=== PATIENT | female | born 1935 | race Caucasian/White ===

== ENCOUNTER 2018-11-11 20:33 | Observation (INO) ==
[2018-11-12] MEDS ORDERED: Naloxone 0.4 MG/ML INJ IVP PRN (03:10)
--- NOTE | 2018-11-12 03:37 | Internal Med History&Physical ---
<Petrona Vivas - Last Filed: 11/12/18 05:28> Date of Encounter: 11/12/18 Time of Encounter: 02:11 Internal Medicine - H&P: HPI Chief complaint: fluid overload, shortness of breath Admitted From: Hospital to Hospital Transfer History of present illness: Ms. Restrepo is a 83 year old female presenting from [facility] with complaint of fluid overload and shortness of breath. Patient has a past medical history of heart failure with preserved ejection fraction, atrial fibrillation on metoprolol and warfarin, chronic kidney disease stage III, hypertension, gout, GERD, anxiety, dementia with agitation. Patient lived at home and then 23 days ago the patient was at [facility] for 12 day admission for bronchitis and pneumonia, she was treated with prednisone and unknown antibiotic regimen. After those 12 days the patient went to [facility] where she continued ertapenem and Zosyn for her pneumonia as well as a prednisone taper. Patient's daughter states that either at [facility] or at the [facility] her Lasix were discontinued. Per the daughter who is at bedside, patient gained 40 pounds since her admission to [facility]. Patient presented today to [place] emergency department with complaint of fluid overload and shortness of breath. Patient had a chest x-ray that showed left lower lobe pneumonia versus CHF exacerbation and given a dose of Levaquin and Lasix 40 mg. A Rowe catheter was placed and patient had a large amount of urine output. Labs from [place] are significant for white blood cell count at 12.4, hemoglobin at 10.9, creatinine at 1.43 and BUN at 40. A sputum culture was obtained, strep pneumonia urine antigen was negative and a UA was done which showed trace urine protein was negative for leukocyte esterase, nitrates, WBC, RBC. Patient is alert and oriented 1 and not a good historian, the daughter at bedside states that the patient had acute urinary retention last night, has increased agitation which she believes to be secondary to the prednisone taper. Daughter states that the patient was able to complete her physical therapy yesterday and was able to walk and sit up in a chair. The patient was able to admit to shortness of breath, productive cough, pleuritic pain, abdominal pain, dysuria and weight gain. She denies any headache, lightheadedness, fever, chills, chest pain, palpitations, diarrhea, constipation, skin lesions or rashes. Patient follows with Dr. Baez for neurology and Dr. Zheng for cardiology. Past Med Surg Social Fam HX - Past Medical History Medical history: atrial fibrillation, GERD, hypertension, other Additional medical history: kidney disease, brain aneurysm Psychiatric history: anxiety, depression - Past Surgical History Surgical History: other (brain aneurysm repair 1991. TKR 2011, cataract) Additional surgical history: Brain aneurysm with clips. Hernia surgery - Social History Smoking Status: Never smoker Smokeless Tobacco Status: No Alcohol use: none Drug use: none - Family History Father Hx Family Cardiac Disorders: Yes Brother Living Status: Age at : 72 Cause of : DC Hx Family Cardiac Disorders: Yes (DC) Internal Medicine - H&P: Meds Calcitriol [Rocaltrol] 0.25 mcg PO DAILY 05/28/16 [History] Omeprazole 40 mg PO DAILY 06/12/16 [History] Furosemide [Lasix] 40 mg PO DAILY 04/24/17 [History] Allopurinol [Zyloprim 100 MG] 100 mg PO DAILY 11/12/18 [History] Cholecalciferol (Vitamin D3) [Vitamin D] 50,000 unit PO WE 11/12/18 [History] Ertapenem Sodium [Invanz] 1 gm IJ DAILY 11/12/18 [History] Ipratropium/Albuterol Sulfate [Iprat-Albut 0.5-3(2.5) mg/3 ml] 3 ml IH Q6H PRN 11/12/18 [History] LORazepam [Ativan] 0.5 mg PO HS PRN 11/12/18 [History] Metoprolol Tartrate [Lopressor] 50 mg PO BID 11/12/18 [History] Nystatin POWDER [Nystop] 1 appl TP AD 11/12/18 [History] PARoxetine HCl [Paroxetine HCl] 30 mg PO DAILY 11/12/18 [History] Qxciplxylvnt-Dwgy-Dpqrhavq,Iso [Zosyn 2.25 gm/50 ml Galaxy Bag] 2.25 gm IV QID 11/12/18 [History] Quetiapine Fumarate [SEROquel] 25 mg PO DAILY 11/12/18 [History] Warfarin Sodium 3 mg PO DAILY 11/12/18 [History] predniSONE [PredniSONE] 10 mg PO BID 11/12/18 [History] Allergy/AdvReac Type Severity Reaction Status Date / Time digoxin AdvReac Nausea Verified 11/12/18 02:06 doxycycline AdvReac Confusion Verified 06/12/16 21:33 ROS unobtainable: other (Patient able to answer some questions, daughter at bedside assisted with review of systems) All Systems PM: A 10-system review of systems was performed and is negative for pertinent findings except as documented above in the HPI. - Constitutional Constitutional: no chills, no fatigue, no fever(s), no falls - EENT Eyes: no change in vision Ears: decreased hearing Nose, mouth and throat: no dysphagia, no nasal congestion, no odynophagia - Cardiovascular Cardiovascular ROS IM: dyspnea, dyspnea on exertion, edema, no chest pain, no diaphoresis, no lightheadedness, no palpitations, no syncope - Respiratory Respiratory: cough, dyspnea on exertion, pain on inspiration, chest congestion, pain with cough, no hemoptysis - Gastrointestinal Gastrointestinal: abdominal pain, no change in bowel habits, no constipation, no diarrhea, no dysphagia, no loose stools, no melena, no nausea, no vomiting - Genitourinary Genitourinary: difficulty urinating, urinary incontinence, no dysuria, no hematuria - Musculoskeletal Musculoskeletal ROS IM: no arthralgias, no myalgias - Integumentary Integumentary IM: no erythema, no new lesions, no non-healing lesions, no rash, no sores - Neurological Neurological ROS: confusion, memory loss, no focal weakness, no frequent falls, no paresthesias, no weakness - Psychiatric Psychiatric: abnormal sleep pattern, anxiety, confusion, irritability - Endocrine Endocrine IM: no cold intolerance, no heat intolerance - Hematologic/Lymphatic Hematologic/Lymphatic: easy bleeding, easy bruising - Constitutional Vitals: Temp Pulse Resp BP Pulse Ox 98.3 F 67 16 146/83 95 11/12/18 01:46 11/12/18 01:46 11/12/18 01:46 11/12/18 01:46 11/12/18 01:46 Exam: Gen.: Vitals noted. No acute distress. AAOx1, per daughter this is baseline, resting comfortably in bed. HEENT: PERRL/EOMI, oropharynx clear, Normocephalic, atraumatic, MMM Neck: Supple. No adenopathy. Trachea midline. No cervical midline tenderness. Cardiac: RRR, no murmur, +S1/S2, 1+ pitting edema, abdominal edema, radial pulses 3+ and symmetrical, dorsal pedis pulses and posterior tibial pulses not palpated however are located with Doppler ultrasound. Capillary refill less than 3 seconds. Pulmonary: Coarse Rales bilaterally, worse on the left, equal chest expansion, unlabored breathing Abdomen: soft, mildly distended, nontender, BS noted, no guarding, no palpable HSM Back: Nontender throughout. No sacral ulcers present. Skin: Bilateral lower extremities cool to touch, small healing lesion on left great toe. Bruising noted to bilateral upper extremities. MSK: ROM intact, no joint swelling noted, gait no assessed while in bed. B ilateral lower extremity and pedal diffuse tenderness to palpation. Neuro: A&Ox1, moves all extremities, no focal deficits, sensation intact, CN2-12 intact Psych: Calm, attempting to bite and chew on blanket as well as call light, attempting to grasp things out of the air: Per daughter this is baseline behavior, AOx1 Internal Med - H&P Results - Labs CBC & Chem 7: 11/12/18 03:49 11/12/18 03:49 - Assessment and Plan (1) Heart failure with preserved ejection fraction Current Visit: Yes Status: Acute Assessment and plan: Patient has a history of preserved ejection fraction and heart failure Presented to [place] emergency department with complaint of increasing shortness of breath and weight gain of 40 pounds within the past month Recently admitted to [facility] as well as stay at retirement facility, at some point during this admission and retirement facility stay her Lasix was discontinued Last echo on record 04/24/17-LVEF 60%, indeterminate LV diastolic function, right ventricle moderately dilated, mild aortic and tricuspid regurgitation and mild pulmonary hypertension. Chest x-ray at [place] -possible left lower lobe pneumonia versus fluid overload EKG shows heart rate of 82, normal axis in atrial fibrillation, no ST segment elevation or depression, no ischemic changes present. Compared to previous EKG done 06/09, this study is degraded somewhat by artifact, appears to show sinus arrhythmia. Repeat CBC, CMP, phosphorus and BNP pending Echo pending Strict I and O Continue Rowe catheter, history of urinary incontinence and for measurement of urine output Qualifiers: Heart failure chronicity: acute on chronic Qualified Code(s): I50.33 - Acute on chronic diastolic (congestive) heart failure (2) Left lower lobe pneumonia Current Visit: Yes Status: Acute Assessment and plan: Hospital-acquired pneumonia Patient diagnosed with pneumonia 23 days ago and was treated at [facility] with admission for 12 days, and continued treatment with Zosyn and ertapenem at [facility] Suspect that there are culture results from [facility], will need to call in the morning for culture results which most likely guided therapy with ertapenem Chest x-ray from [place] emergency department show left lower lobe pneumonia versus CHF exacerbation and fluid overload Leukocytosis at 12.4 present, patient also complains of shortness of breath and productive cough Scheduled DuoNeb and albuterol when necessary Ertapenem and Zosyn for antibiotic therapy Continue respiratory support as needed. Qualifiers: Pneumonia type: due to unspecified organism Qualified Code(s): J18.1 - Lobar pneumonia, unspecified organism (3) Afib Current Visit: Yes Status: Chronic Assessment and plan: Patient has a history of atrial fibrillation Home medications metoprolol and warfarin to be continued EKG shows heart rate of 82, normal axis, atrial fibrillation, no ST segment elevation or depression, no ischemic changes present. Continue cardiac monitoring Pharmacy to dose warfarin Qualifiers: Atrial fibrillation type: chronic Qualified Code(s): I48.2 - Chronic atrial fibrillation (4) CKD (chronic kidney disease) stage 3, GFR 30-59 ml/min Current Visit: Yes Status: Chronic Assessment and plan: History of chronic kidney disease stage III Creatinine 1.43, BUN [address] Sasha GEE with phosphorus pending Continue to avoid nephrotoxic medications-no NSAIDs just Tylenol for pain if nee ded Renally dose medications and antibiotics Continue to monitor (5) Hypertension Current Visit: Yes Status: Chronic Assessment and plan: History of hypertension Patient currently only on metoprolol for rate control and hypertension Continue metoprolol Qualifiers: Hypertension type: essential hypertension Qualified Code(s): I10 - Essential (primary) hypertension (6) GERD (gastroesophageal reflux disease) Current Visit: Yes Status: Chronic Assessment and plan: History of GERD Continue home medication omeprazole Qualifiers: Esophagitis presence: esophagitis presence not specified Qualified Code(s): K21.9 - Gastro-esophageal reflux disease without esophagitis (7) Gout Current Visit: Yes Status: Acute Assessment and plan: History of gout Continue home medication allopurinol Qualifiers: Gout site: unspecified site Gout etiology: unspecified cause Chronicity: chronic Presence of tophus: without tophus Qualified Code(s): M1A.9XX0 - Chronic gout, unspecified, without tophus (tophi) (8) Dementia Current Visit: Yes Status: Chronic Assessment and plan: Patient has a history of dementia Per the patient's daughter, patient seems more agitated than normal, also states that patient was not able to tolerate benzodiazepines for agitation Continue home medications Seroquel for agitation Qualifiers: Dementia type: Alzheimer's disease Alzheimer's disease onset: unspecified onset Dementia behavioral disturbance: without behavioral disturbance Qualified Code(s): G30.9 - Alzheimer's disease, unspecified; F02.80 - Dementia in other diseases classified elsewhere without behavioral disturbance (9) Anxiety Current Visit: Yes Status: Acute Assessment and plan: Patient has a history of anxiety Continue home medication paroxetine (10) Generalized weakness Current Visit: Yes Status: Acute Assessment and plan: Patient has a history of generalized weakness Was successfully doing physical therapy at retirement facility We will consult PT/OT for continued therapy during this admission (11) DVT prophylaxis Current Visit: Yes Status: Chronic Assessment and plan: Continue warfarin for anticoagulation - Time Spent With Patient Total time spent is greater than 50% in coordination of care (as documented) at patient's floor/unit and/or counseling patient: <Sonu Andino - Last Filed: 11/12/18 19:23> Date of Encounter: 11/12/18 Internal Medicine - H&P: HPI History of present illness: Ms. Restrepo is a 83 year old female All Systems PM: A 10-system review of systems was performed and is negative for pertinent findings except as documented above in the HPI. - Constitutional Vitals: Temp Pulse Resp BP Pulse Ox 97.6 F 74 20 100/62 96 11/12/18 15:03 11/12/18 15:03 11/12/18 16:28 11/12/18 15:03 11/12/18 16:28 Internal Med - H&P Results - Labs CBC & Chem 7: 11/12/18 03:49 11/12/18 03:49 Labs: Short CBC 11/12/18 Range/Units 03:49 WBC 12.6 H (4.3-11.1) K/mcL Hgb 10.8 L (11.5-15.4) g/dL Hct 33.3 L (35.3-44.9) % Plt Count 250 (140-400) K/mcL Neutrophils # 10.1 H (1.6-8.9) K/mcL BMP 11/12/18 03:49 Sodium 140 Potassium 4.3 Chloride 101 Carbon Dioxide 28 BUN 36 H Creatinine 1.32 H Glucose 78 Calcium 9.2 Liver Function 11/12/18 Range/Units 03:49 Total Bilirubin 0.7 (0.3-1.0) mg/dL AST 18 (13-39) Units/L ALT 24 (7-52) Units/L Alkaline Phosphatase 38 (34-104) Units/L Albumin 3.6 (3.5-5.7) g/dL - Impressions ITS Impressions Echocardiogram 11/12/18 04:10 Impressions: LVEF 60%. Normal LV chamber size and function. Mild concentric left ventricular hypertrophy. Indeterminate diastolic function. Normal right ventricular structure and function. Severely dilated left atrium. Mild aortic regurgitation. Mild mitral regurgitation. Mild tricuspid regurgitation. Mild-moderate pulmonary hypertension. Estimated RVSP is 47 mmHg. Findings: Study Quality * Technically adequate exam. ECG Findings * Atrial fibrillation. Left Ventricle * LVEF 60%. * Normal LV chamber size and function. * Mild concentric left ventricular hypertrophy. * Indeterminate diastolic function. Right Ventricle * Normal right ventricular structure and function. Left Atrium * Severely dilated left atrium. Right Atrium * Mildly dilated right atrium. Aortic Valve * Trileaflet aortic valve. * Moderately calcified aortic valve leaflets. * Mild aortic regurgitation. * No aortic stenosis. Mitral Valve * Mild mitral annular calcification * Mildly thickened mitral valve leaflets. * Mild mitral regurgitation. * No mitral stenosis. Tricuspid Valve * Normal tricuspid valve structure. * Mild tricuspid regurgitation. * Mild-moderate pulmonary hypertension. * Estimated RVSP is 47 mmHg. * Estimated RA pressure is 5 mmHg. Pulmonic Valve * Normal pulmonic valve structure and function. * No pulmonic regurgitation. Aorta * Normally sized aortic root. Pericardium * The pericardium appears normal. IVC * The IVC is not well evaluated. Pulmonary Artery * Pulmonary artery not well visualized. - Time Spent With Patient Total time spent is greater than 50% in coordination of care (as documented) at patient's floor/unit and/or counseling patient: - Attending Attestation I saw and evaluated the patient. I reviewed the residents note, performed my own physical examination and agree with findings and plan as documented in the residents note. Patient seen and examined on the morning of 11/12/18. Patient presented with history of pneumonia and fluid overload. Will continue with diuresis, patient having good urine output thus far. Contnue antibiotic regimen initiated prior to her presentation. Patient stated this morning that she is breathing better, no respiratory distress.
[2018-11-12] MEDS ORDERED: Albuterol 2.5 MG/3 ML NEBULIZER IH PRN (04:11)
[2018-11-12 04:28] LABS: Basophils % 0.2 %; Eosinophils # 0.1 K/mcL (0.0-0.6); Eosinophils % 0.6 %; Hematocrit 33.3 % (35.3-44.9); Hemoglobin 10.8 g/dL (11.5-15.4); Immature Granulocytes % 1.8 % (0-4); Lymphocytes # 1.3 K/mcL (0.6-4.6); Lymphocytes % 10.1 %; Mean Corpuscular HGB Conc 32.4 g/dL (31.6-35.5); Mean Corpuscular Volume 89.3 fL (83.0-100.0); Mean Platelet Volume 10.1 fL (9.4-12.4); Monocytes # 0.9 K/mcL (0.0-1.3); Monocytes % 7.1 %; Neutrophils # 10.1 K/mcL (1.6-8.9); Platelet Count 250 K/mcL (140-400); Red Blood Count 3.73 M/mcL (3.82-4.97); Red Cell Distribution Width 16.2 % (11.5-14.5); Segmented Neutrophils % 80.2 %
[2018-11-12 04:35] LABS: INR 2.5; Prothrombin Time 28.6 Seconds (9.4-12.1)
[2018-11-12 04:37] LABS: Activated Partial Thrombo Time 36.2 Seconds (26.0-36.0)
[2018-11-12 04:45] LABS: Calcium 9.2 mg/dL (8.6-10.3); Potassium 4.3 mEq/L (3.5-5.1)
[2018-11-12 05:07] LABS: Albumin 3.6 g/dL (3.5-5.7); Albumin/Globulin Ratio 1.7 (1.1-2.2); Bilirubin,Total 0.7 mg/dL (0.3-1.0); Globulin 2.1 g/dL (2.4-3.5); Phosphorous 2.7 mg/dL (2.7-4.5); Total Protein 5.7 g/dL (6.4-8.9)
[2018-11-12] MEDS: Ipratropium/Albuterol Neb 3 ML IH SCH ×4 (05:33→21:43)
[2018-11-12] MEDS ORDERED: Piperacillin/Tazobactam 3.375 GM in 0.9 % Sodium Chloride Mini Bag 100 ML IVPB SCH (08:00)
[2018-11-12] MEDS: Furosemide 40 MG TABLET PO SCH (08:26)
[2018-11-12] MEDS ORDERED: Ertapenem 1,000 MG in 0.9 % Sodium Chloride Mini Bag 100 ML IVPB SCH (09:00)
--- NOTE | 2018-11-12 10:50 | Internal Med Progress Note ---
Hospitalist Progress Note - Encounter Date of Encounter: 11/12/18 Time of Encounter: 08:15 - Subjective Interval History: Ms. Nava was seen at bedside this morning. Her vitals were reviewed and she remained afebrile overnight. She was on room air saturating at 93%. History could not be obtained from her due to her mental status, given history of d ementia. - Exam Vitals: Temp Pulse Resp BP Pulse Ox 97.5 F L 79 20 122/61 93 11/12/18 10:40 11/12/18 10:40 11/12/18 10:40 11/12/18 10:40 11/12/18 10:40 Exam: Gen: Vitals noted. No acute distress. Appears comfortable. Eyes: anicteric sclerae, left eye looks erythematous HENT: Atraumatic; moist mucous membranes Neck: Trachea midline; supple, no thyromegaly or lymphadenopathy Cardiac: RRR, no murmur, +S1/S2. No JVD noted. Pulmonary: Rhonchi all lung lobes Abdomen: soft, nontender, no guarding. No masses or hepatosplenomegaly MSK: ROM intact, no joint swelling noted Extremities: non edema, nontender calf Skin: Normal temperature, turgor; no rash, ulcers or subcutaneous nodules Neuro: moves all extremities, no focal deficits. Psych: Thought content not congruent, alert but not oriented to person, place or time - Time Spent with Patient Total time spent is greater than 50% in coordination of care (as documented) at patient's floor/unit and/or counseling patient: Internal Medicine: Result - Labs CBC & Chem 7: 11/12/18 03:49 11/12/18 03:49 Labs: Short CBC 11/12/18 Range/Units 03:49 WBC 12.6 H (4.3-11.1) K/mcL Hgb 10.8 L (11.5-15.4) g/dL Hct 33.3 L (35.3-44.9) % Plt Count 250 (140-400) K/mcL Neutrophils # 10.1 H (1.6-8.9) K/mcL BMP 11/12/18 03:49 Sodium 140 Potassium 4.3 Chloride 101 Carbon Dioxide 28 BUN 36 H Creatinine 1.32 H Glucose 78 Calcium 9.2 Liver Function 11/12/18 Range/Units 03:49 Total Bilirubin 0.7 (0.3-1.0) mg/dL AST 18 (13-39) Units/L ALT 24 (7-52) Units/L Alkaline Phosphatase 38 (34-104) Units/L Albumin 3.6 (3.5-5.7) g/dL - ABG Interpretation ABG results: PT/INR, D-dimer PT 28.6 Seconds (9.4-12.1) H 11/12/18 03:49 Consult Discharge Plan - Plan Referrals: NONE,PCP [Primary Care Provider] -
[2018-11-12] MEDS ORDERED: Levofloxacin 750 MG/150 ML 750 MG/150 ML BAG IVPB SCH (14:00)
--- NOTE | 2018-11-12 17:14 | Internal Med Progress Note ---
Hospitalist Progress Note - Encounter Date of Encounter: 11/12/18 Time of Encounter: 09:30 - Subjective Interval History: The patient was resting comfortably in her bed eating breakfast. She with the help of her son, admitted to a productive cough that produces clear sputum. denied headache, dyspnea, wheezing, palpitations, diaphoresis, chest pain, dysu lexis, or changes in urinary frequency. She denies GI symptoms. She had no acute events overnight. - Exam Vitals: Temp Pulse Resp BP Pulse Ox 97.6 F 74 20 100/62 96 11/12/18 15:03 11/12/18 15:03 11/12/18 16:28 11/12/18 15:03 11/12/18 16:28 Exam: GEN: AA&Ox1, Interactive, NAD Cardio: RRR, Normal S1/S2, no murmurs no rubs Lungs: CTA B/L, mild inspiratory wheezing, no rhonchi no rales Abdomen: BSx4, soft, non-tender, no CVA tenderness I & O 11/11/18 thru 11/12/18 15:21 Intake Total 440 Output Total 4150 Balance -3710 Weight 82.8 kg Intake: IV Fluids 200 INVanz 1,000 MG In 0.9 % Sodium 100 Chloride (Mini-Bag +) 100 ML @ 100 mls/hr IVPB DAILY [facility] Rx#: [id number] Zosyn 3.375 GM In 0.9 % Sodium 100 Chloride (Mini-Bag +) 100 ML @ 25 mls/hr IVPB Q8HR [facility] Rx#: [id number] Oral 240 Output: Urine 3000 Catheter 1150 Other: Meal Lunch Percent of Meal Consumed 100% Stool Size Large Stool Consistency formed Stool Characteristics Normal for Patient Stool Color Brown Blood Glucose* 93 EKG: HR of 82, normal axis, atrial fibrillation, no ST segment elevation or depression, no ischemic changes present. - Assessment and Plan (1) Heart failure with preserved ejection fraction Current Visit: Yes Status: Chronic Assessment and Plan: Patient has a history of preserved ejection fraction and heart failure Acute exacerbation likely secondary to DC lasics at [facility] Echocardiogram pending. Chest x-ray: possible left lower lobe pneumonia versus fluid overload EKG shows heart rate of 82, normal axis in atrial fibrillation, no ST segment elevation or depression, no ischemic changes present. Repeat CBC, CMP, phosphorus and BNP pending Continue Lasix 40 mg PO Daily, Continue Metoprolol 25 mg PO BID MARILU Strict I and O Continue Rowe catheter, history of urinary incontinence and for measurement of urine output (2) Left lower lobe pneumonia Current Visit: Yes Status: Acute Assessment and Plan: Hospital-acquired pneumonia Patient was started on an incomplete coverage for hospital acquired pneumonia. She was receiving Zosyn and ertapenum. The Ertapenum will be replaced by meropenem for proper pseudomonal coverage with the addition of Levofloxacin Chest x-ray from [place] showed left lower lobe pneumonia versus CHF exacerbation and fluid overload Obtain sputum cultures from [facility]. Continue DuoNeb and albuterol DC Ertapenem and Start Meropenem, Start Levofloxacin 750 mg IVPD Q48H DC Zosyn 1st day of proper antibiotic Antibiotic therapy, length of treatment Patient received 12 day antibiotic therapy for suspected pneumonia before being transferred here. Continue respiratory support as needed. (3) Afib Current Visit: Yes Status: Chronic Assessment and Plan: Patient has a history of atrial fibrillation Continue Home medications, metoprolol and warfarin EKG discussed above Continue cardiac monitoring Pharmacy to dose warfarin (4) CKD (chronic kidney disease) stage 3, GFR 30-59 ml/min Current Visit: Yes Status: Chronic Assessment and Plan: History of chronic kidney disease stage III BUN: 36, Creatinine 1.32, GFR: 47 Continue to avoid nephrotoxic medications-no NSAIDs Renal dose medications and antibiotics Continue to monitor Patient follows with Dr. Baez (5) Hypertension Current Visit: No Status: Chronic Assessment and Plan: Patient has history of home medication Vitals stable, normotensive Continue home medications, metoprolol (6) GERD (gastroesophageal reflux disease) Current Visit: No Status: Chronic Assessment and Plan: Patient has history of GERD Continue home medications, omeprazole (7) Gout Current Visit: Yes Status: Acute Assessment and Plan: Patient has a history of Gout Continue home medications, Allopurinol (8) Dementia Current Visit: No Status: Chronic Assessment and Plan: Patient has a history of Dementia Continue home medications, Seroquel avoid the use of Benzos (9) Anxiety Current Visit: No Status: Acute Assessment and Plan: Patient has a history of Anxiety Continue home medications, paroxetine (10) Weakness Current Visit: No Status: Acute (11) Generalized weakness Current Visit: Yes Status: Chronic Assessment and Plan: Patient has a history of generalized weakness Received PT at [facility] facility Consult PT/OT - Time Spent with Patient Total time spent is greater than 50% in coordination of care (as documented) at patient's floor/unit and/or counseling patient: Internal Medicine: Result - Labs CBC & Chem 7: 11/12/18 03:49 11/12/18 03:49 Labs: Short CBC 11/12/18 Range/Units 03:49 WBC 12.6 H (4.3-11.1) K/mcL Hgb 10.8 L (11.5-15.4) g/dL Hct 33.3 L (35.3-44.9) % Plt Count 250 (140-400) K/mcL Neutrophils # 10.1 H (1.6-8.9) K/mcL BMP 11/12/18 03:49 Sodium 140 Potassium 4.3 Chloride 101 Carbon Dioxide 28 BUN 36 H Creatinine 1.32 H Glucose 78 Calcium 9.2 Liver Function 11/12/18 Range/Units 03:49 Total Bilirubin 0.7 (0.3-1.0) mg/dL AST 18 (13-39) Units/L ALT 24 (7-52) Units/L Alkaline Phosphatase 38 (34-104) Units/L Albumin 3.6 (3.5-5.7) g/dL - ABG Interpretation ABG results: PT/INR, D-dimer PT 28.6 Seconds (9.4-12.1) H 11/12/18 03:49 - Impressions Impressions Echocardiogram 11/12/18 04:10 Impressions: LVEF 60%. Normal LV chamber size and function. Mild concentric left ventricular hypertrophy. Indeterminate diastolic function. Normal right ventricular structure and function. Severely dilated left atrium. Mild aortic regurgitation. Mild mitral regurgitation. Mild tricuspid regurgitation. Mild-moderate pulmonary hypertension. Estimated RVSP is 47 mmHg. Findings: Study Quality * Technically adequate exam. ECG Findings * Atrial fibrillation. Left Ventricle * LVEF 60%. * Normal LV chamber size and function. * Mild concentric left ventricular hypertrophy. * Indeterminate diastolic function. Right Ventricle * Normal right ventricular structure and function. Left Atrium * Severely dilated left atrium. Right Atrium * Mildly dilated right atrium. Aortic Valve * Trileaflet aortic valve. * Moderately calcified aortic valve leaflets. * Mild aortic regurgitation. * No aortic stenosis. Mitral Valve * Mild mitral annular calcification * Mildly thickened mitral valve leaflets. * Mild mitral regurgitation. * No mitral stenosis. Tricuspid Valve * Normal tricuspid valve structure. * Mild tricuspid regurgitation. * Mild-moderate pulmonary hypertension. * Estimated RVSP is 47 mmHg. * Estimated RA pressure is 5 mmHg. Pulmonic Valve * Normal pulmonic valve structure and function. * No pulmonic regurgitation. Aorta * Normally sized aortic root. Pericardium * The pericardium appears normal. IVC * The IVC is not well evaluated. Pulmonary Artery * Pulmonary artery not well visualized. Consult Discharge Plan - Plan Referrals: NONE,PCP [Primary Care Provider] - (1) Heart failure with preserved ejection fraction Qualifiers: Heart failure chronicity: acute on chronic Qualified Code(s): I50.33 - Acute on chronic diastolic (congestive) heart failure (2) Left lower lobe pneumonia Qualifiers: Pneumonia type: due to unspecified organism Qualified Code(s): J18.1 - Lobar pneumonia, unspecified organism (3) Afib Qualifiers: Atrial fibrillation type: chronic Qualified Code(s): I48.2 - Chronic atrial fibrillation (5) Hypertension Qualifiers: Hypertension type: essential hypertension Qualified Code(s): I10 - Essential (primary) hypertension (6) GERD (gastroesophageal reflux disease) Qualifiers: Esophagitis presence: esophagitis presence not specified Qualified Code(s): K21.9 - Gastro-esophageal reflux disease without esophagitis (7) Gout Qualifiers: Gout site: unspecified site Gout etiology: unspecified cause Chronicity: chronic Presence of tophus: without tophus Qualified Code(s): M1A.9XX0 - Ch ronic gout, unspecified, without tophus (tophi) (8) Dementia Qualifiers: Dementia type: Alzheimer's disease Alzheimer's disease onset: unspecified onset Dementia behavioral disturbance: without behavioral disturbance Qualified Code(s): G30.9 - Alzheimer's disease, unspecified; F02.80 - Dementia in other diseases classified elsewhere without behavioral disturbance
[2018-11-12 17:46] LABS: Adenovirus Not Detected (Not Detect); Bordetella Pertussis Not Detected (Not Detect); Coronavirus 229E Not Detected (Not Detect); Coronavirus HKU1 Not Detected (Not Detect); Coronavirus NL63 Not Detected (Not Detect); Coronavirus OC43 Not Detected (Not Detect); Human Metapneumovirus Not Detected (Not Detect); Human Rhinovirus/Enterovirus Not Detected (Not Detect); Influenza A Subtype 2009 H1 Not Detected (Not Detect); Influenza A Untypeable Not Detected (Not Detect); Influenza B Not Detected (Not Detect); Parainfluenza Virus 1 Not Detected (Not Detect); Parainfluenza Virus 2 Not Detected (Not Detect); Parainfluenza Virus 3 Not Detected (Not Detect); Parainfluenza Virus 4 Not Detected (Not Detect); Respiratory Syncytial Virus Not Detected (Not Detect)
[2018-11-12 17:47] LABS: Chlamydophila pneumoniae Not Detected (Not Detect); Mycoplasma pneumoniae Not Detected (Not Detect)
[2018-11-12] MEDS ORDERED: Warfarin perPT PO PRN (18:00)
[2018-11-12] MEDS ORDERED: *HR* Warfarin 2 MG TABLET PO ONE (18:00)
[2018-11-12] MEDS: Meropenem 500 MG in Water for inj. (sterile) 20 ML 10 ML IVP SCH (18:45)
--- NOTE | 2018-11-12 19:48 | Electrocardiograph Report ---
[address] [address] Test Date: 2018-11-12 Pat Name: Mary Restrepo Department: 113 Room: 3B16 Gender: F [employer] Systems [employer]: : [id number] Requested By: Petrona Vivas Order Number: [id number] Reading MD: Josefa Goins Measurements Intervals [place] Rate: 82 P: CA: 0 QRS: 46 QRSD: 85 T: 27 QT: 357 QTc: 396 Interpretive Statements ATRIAL FIBRILLATION ABNORMAL RHYTHM ECG Electronically Signed On 11-12-2018 19:46:34 EDT by Josefa Goins
[2018-11-13] MEDS ORDERED: Aminoglycoside Consult 1 EACH MC ONE (01:12)
[2018-11-13 04:03] LABS: Basophils % 0.1 %; Eosinophils # 0.1 K/mcL (0.0-0.6); Eosinophils % 1.5 %; Hematocrit 29.3 % (35.3-44.9); Hemoglobin 9.4 g/dL (11.5-15.4); Lymphocytes # 0.9 K/mcL (0.6-4.6); Lymphocytes % 9.8 %; Mean Corpuscular HGB Conc 32.1 g/dL (31.6-35.5); Mean Corpuscular Hemoglobin 28.7 pg (28.0-33.3); Mean Corpuscular Volume 89.6 fL (83.0-100.0); Monocytes # 0.7 K/mcL (0.0-1.3); Monocytes % 7.8 %; Neutrophils # 6.9 K/mcL (1.6-8.9); Platelet Count 181 K/mcL (140-400); Red Blood Count 3.27 M/mcL (3.82-4.97); Red Cell Distribution Width 16.6 % (11.5-14.5); Segmented Neutrophils % 78.8 %
[2018-11-13 04:09] LABS: INR 2.5; Prothrombin Time 28.5 Seconds (9.4-12.1)
[2018-11-13] MEDS: Ipratropium/Albuterol Neb 3 ML IH SCH ×4 (04:22→22:03)
[2018-11-13] MEDS: Meropenem 500 MG in Water for inj. (sterile) 20 ML 10 ML IVP SCH ×2 (05:39→18:15)
[2018-11-13] MEDS: Furosemide 40 MG TABLET PO SCH (08:37)
[2018-11-13 13:05] LABS: Hematocrit 33.3 % (35.3-44.9); Hemoglobin 10.6 g/dL (11.5-15.4)
[2018-11-13 13:10] LABS: Calcium 9.1 mg/dL (8.6-10.3); Potassium 4.3 mEq/L (3.5-5.1)
--- NOTE | 2018-11-13 14:49 | Discharge Summary ---
<Elizabeth Meyer - Last Filed: 11/13/18 14:38> - NOTES TO OUTPATIENT PROVIDER Notes to Outpatient Provider: Ms. Mayorga was presented to the ED due to shortness of breath and recent surgery to 40 pound weight gain. Per family she was not receiving her Lasix outpatient which likely caused her lower extremity edema and we can as well as shortness of breath. She had an echo during this admission and showed preserved EF of 60%. Her Lasix has been restarted and 40 mg by mouth should be continued. Additionally her UTI regimen has been completed and antibiotics for that has been stopped. She will be discharged with 6 days of Levaquin to cover for pneumonia, her last day of treatment should be 11/19/18. Orders not resulted at time of discharge: Pending orders 11/14/18 04:00 Complete Blood Count [HEME] AM 0400 INR/PT [Prothrombin Time INR] [COAG] AM 0400 11/15/18 04:00 INR/PT [Prothrombin Time INR] [COAG] AM 0400 11/16/18 04:00 INR/PT [Prothrombin Time INR] [COAG] AM 0400 Date of Encounter: 11/13/18 Time of Encounter: 08:30 - Discharge Diagnosis (1) CHF exacerbation Priority: Primary Status: Acute Qualifiers: Heart failure type: diastolic Qualified Code(s): I50.33 - Acute on chronic diastolic (congestive) heart failure (2) Left lower lobe pneumonia Priority: Secondary Status: Acute Qualifiers: Pneumonia type: due to unspecified organism Qualified Code(s): J18.1 - Lobar pneumonia, unspecified organism (3) Afib Priority: Secondary Status: Chronic Qualifiers: Atrial fibrillation type: chronic Qualified Code(s): I48.2 - Chronic atrial fibrillation (4) CKD (chronic kidney disease) stage 3, GFR 30-59 ml/min Priority: Secondary Status: Chronic (5) Hypertension Priority: Secondary Status: Chronic Qualifiers: Hypertension type: essential hypertension Qualified Code(s): I10 - Essential (primary) hypertension (6) Dementia Priority: Secondary Status: Chronic Qualifiers: Dementia type: Alzheimer's disease Alzheimer's disease onset: unspecified onset Dementia behavioral disturbance: without behavioral disturbance Qualified Code(s): G30.9 - Alzheimer's disease, unspecified; F02.80 - Dementia in other diseases classified elsewhere without behavioral disturbance (7) GERD (gastroesophageal reflux disease) Priority: Secondary Status: Chronic Qualifiers: Esophagitis presence: esophagitis presence not specified Qualified Code(s): K21.9 - Gastro-esophageal reflux disease without esophagitis (8) UTI (urinary tract infection) Priority: Secondary Status: Resolved Qualifiers: Urinary tract infection type: site unspecified Hematuria presence: without hematuria Qualified Code(s): N39.0 - Urinary tract infection, site not specified Hospital course: Ms. Restrepo is a 83 year old female who was presented from [facility] with complaint of shortness of breath. Per family she had recently gained 30-40 pounds as she was not getting car home Lasix. She had recently been admitted to [facility] for bronchitis and pneumonia and was found to have urine positive for ESBL which was sensitive to ertapenem or Zosyn. At presentation she was noted to be on both of those antibiotics. Which was discontinued. She received 2 days of meropenem completes her 14 day regimen for UTI. During her admission here she had a MRSA swab which was negative, she also had a respiratory infectious panel collected which was also negative for any viral causes. She will be discharged with 6 days of Levaquin to complete a 7 day course for pneumonia, her last day of Levaquin should be on 11/19/18. She should also continue 40 mg oral Lasix daily. Discharge discussed with: patient, family - Time Spent with Patient Total time spent providing and/or coordinating discharge services: - Discharge Medications Prescriptions: New Levofloxacin [Levaquin] 750 mg PO DAILY 6 Days #6 tablet RX: Paroxetine [Paxil] 30 mg PO DAILY tablet Continue RX: Furosemide [Lasix] 40 mg PO DAILY RX: Cholecalciferol (Vitamin D3) [Vitamin D3] 50,000 unit PO WE RX: Quetiapine Fumarate [Seroquel] 25 mg PO DAILY RX: PARoxetine HCl [Paroxetine HCl] 30 mg PO DAILY RX: Nystatin POWDER [Nystop] 1 appl TP AD RX: Metoprolol Tartrate [Lopressor] 50 mg PO BID RX: LORazepam [Ativan] 0.5 mg PO HS PRN PRN Reason: Anxiety RX: Ipratropium/Albuterol Sulfate [Iprat-Albut 0.5-3(2.5) mg/3 ml] 3 ml IH Q6H PRN PRN Reason: PNEUMONIA RX: Warfarin Sodium 3 mg PO DAILY RX: Allopurinol [Zyloprim 100 MG] 100 mg PO DAILY RX: Calcitriol [Rocaltrol] 0.25 mcg PO DAILY RX: Omeprazole 40 mg PO DAILY Discontinued RX: predniSONE [PredniSONE] 10 mg PO BID Ertapenem Sodium [Invanz] 1 gm IJ DAILY Snddutujpwrs-Pwat-Tayrjypk,Iso [Zosyn 2.25 gm/50 ml Galaxy Bag] 2.25 gm IV QID Home Medications: RX: Calcitriol [Rocaltrol] 0.25 mcg PO DAILY 05/28/16 [History] RX: Omeprazole 40 mg PO DAILY 06/12/16 [History] RX: Furosemide [Lasix] 40 mg PO DAILY 04/24/17 [History] RX: Allopurinol [Zyloprim 100 MG] 100 mg PO DAILY 11/12/18 [History] RX: Cholecalciferol (Vitamin D3) [Vitamin D3] 50,000 unit PO WE 11/12/18 [History] RX: Ipratropium/Albuterol Sulfate [Iprat-Albut 0.5-3(2.5) mg/3 ml] 3 ml IH Q6H PRN 11/12/18 [History] RX: LORazepam [Ativan] 0.5 mg PO HS PRN 11/12/18 [History] RX: Metoprolol Tartrate [Lopressor] 50 mg PO BID 11/12/18 [History] RX: Nystatin POWDER [Nystop] 1 appl TP AD 11/12/18 [History] RX: PARoxetine HCl [Paroxetine HCl] 30 mg PO DAILY 11/12/18 [History] RX: Quetiapine Fumarate [Seroquel] 25 mg PO DAILY 11/12/18 [History] RX: Warfarin Sodium 3 mg PO DAILY 11/12/18 [History] Levofloxacin [Levaquin] 750 mg PO DAILY 6 Days #6 tablet 11/13/18 [Rx] RX: Paroxetine [Paxil] 30 mg PO DAILY tablet 11/13/18 [Rx] Allergies/Adverse Reactions: Allergy/AdvReac Type Severity Reaction Status Date / Time digoxin AdvReac Nausea Verified 11/12/18 02:06 doxycycline AdvReac Confusion Verified 06/12/16 21:33 Date of admission: 11/12/18 01:11 Primary care physician: PCP NONE Consults: 11/12/18 04:52 Consult to Occupational Therapy [CONS] Routine Comment: Evaluate, develop and implement POC Reason for Consult: Generalized weakness Does patient have active BEDREST order?: No Is patient medically & hemodynamically stable?: Yes Patient assessed for mobility or mobilized this visit?: No Consult to Physical Therapy [CONS] Routine Comment: Evaluate, develop and implement POC Reason for Consult: generalized weakness Does patient have active BEDREST order?: No Is patient medically & hemodynamically stable?: Yes Patient assessed for mobility or mobilized this visit?: No 11/12/18 05:05 Consult to PICC team [Consult to Invasive Line Access Team] [CONS] Routine Reason for Consult: Incompatible midline Line Type: Midline Call Completed: No 11/12/18 08:21 Consult to Nurse Navigator [CONS] Routine Comment: CHF, PNEUMONIA Consult to Digital Producer [CONS] Routine Reason for SW Consult: PATIENT FROM [facility]. WILL NEED A NEW AUTH TO RETURN Discharging clinician: Elizabeth Meyer Anticipated date of discharge: 11/13/18 - Constitutional Vitals: Temp Pulse Resp BP Pulse Ox 98.8 F 83 16 96/61 96 11/13/18 11:03 11/13/18 11:03 11/13/18 11:06 11/13/18 11:03 11/13/18 11:06 General appearance: Present: A&O X 0, no acute distress Exam: SEE above - Head Head exam: Present: atraumatic, normocephalic - Eye Eye exam: Present: EOMI, normal appearance, sclera anicteric - ENT ENT exam: Present: mucous membranes moist - Neck Neck exam general surgery: Present: full ROM, normal inspection - Respiratory Respiratory exam: Present: CTAB. Absent: rhonchi, stridor, wheezes - Cardiovascular Cardiovascular exam: Present: RRR, +S1, +S2 - GI/Abdominal GI/Abdominal exam: Present: normal bowel sounds, soft. Absent: firm, guarding, tenderness - Extremities Exam Extremities exam: Present: pedal edema (+1 pitting edema). Absent: tenderness - Psychiatric Psychiatric exam: Present: normal mood Additional comments: awake and alert but not oriented. Has underlying dementia. - Skin Skin exam: Present: dry, intact, warm - Patient Status Disposition: Transfer SNF Condition: Fair Overall status at discharge: patient is progressing back to baseline - Discharge Instructions Follow Up With: NONE,PCP [Primary Care Provider] - - Diet and Activity Activity: increase activity as tolerated Diet: low salt diet <AlexusPreston Sanders - Last Filed: 11/13/18 18:29> Orders not resulted at time of discharge: Pending orders 11/14/18 04:00 BMP [Basic Metabolic Panel] AM 0400 Complete Blood Count [HEME] AM 0400 INR/PT [Prothrombin Time INR] [COAG] AM 0400 11/15/18 04:00 INR/PT [Prothrombin Time INR] [COAG] AM 04011/16/18 04:00 INR/PT [Prothrombin Time INR] [COAG] AM 0400 Date of Encounter: 11/13/18 - Discharge Diagnosis (1) Afib Status: Chronic Qualifiers: Atrial fibrillation type: chronic Qualified Code(s): I48.2 - Chronic atrial fibrillation (2) CKD (chronic kidney disease) stage 3, GFR 30-59 ml/min Status: Chronic (3) Hypertension Status: Chronic Qualifiers: Hypertension type: essential hypertension Qualified Code(s): I10 - Essential (primary) hypertension (4) Dementia Status: Chronic Qualifiers: Dementia type: Alzheimer's disease Alzheimer's disease onset: unspecified onset Dementia behavioral disturbance: without behavioral disturbance Qualified Code(s): G30.9 - Alzheimer's disease, unspecified; F02.80 - Dementia in other diseases classified elsewhere without behavioral disturbance (5) GERD (gastroesophageal reflux disease) Status: Chronic Qualifiers: Esophagitis presence: esophagitis presence not specified Qualified Code(s): K21.9 - Gastro-esophageal reflux disease without esophagitis (6) CHF exacerbation Status: Acute Qualifiers: Heart failure type: diastolic Qualified Code(s): I50.33 - Acute on chronic diastolic (congestive) heart failure (7) Left lower lobe pneumonia Status: Acute Qualifiers: Pneumonia type: due to unspecified organism Qualified Code(s): J18.1 - Lobar pneumonia, unspecified organism (8) UTI (urinary tract infection) Status: Resolved Qualifiers: Urinary tract infection type: site unspecified Hematuria presence: without hematuria Qualified Code(s): N39.0 - Urinary tract infection, site not specified Hospital course: Ms. Restrepo is a 83 year old female - Time Spent with Patient Total time spent providing and/or coordinating discharge services: Date of admission: 11/12/18 01:11 Primary care physician: PCP NONE Consults: 11/12/18 04:52 Consult to Occupational Therapy [CONS] Routine Comment: Evaluate, develop and implement POC Reason for Consult: Generalized weakness Does patient have active BEDREST order?: No Is patient medically & hemodynamically stable?: Yes Patient assessed for mobility or mobilized this visit?: No Consult to Physical Therapy [CONS] Routine Comment: Evaluate, develop and implement POC Reason for Consult: generalized weakness Does patient have active BEDREST order?: No Is patient medically & hemodynamically stable?: Yes Patient assessed for mobility or mobilized this visit?: No 11/12/18 05:05 Consult to PICC team [Consult to Invasive Line Access Team] [CONS] Routine Reason for Consult: Incompatible midline Line Type: Midline Call Completed: No 11/12/18 08:21 Consult to Nurse Navigator [CONS] Routine Comment: CHF, PNEUMONIA Consult to Digital Producer [CONS] Routine Reason for SW Consult: PATIENT FROM [facility]. WILL NEED A NEW AUTH TO RETURN - Constitutional Vitals: Temp Pulse Resp BP Pulse Ox 98.6 F 91 18 121/58 92 11/13/18 16:18 11/13/18 16:18 11/13/18 16:55 11/13/18 16:18 11/13/18 16:55 - Attending Attestation I examined this patient and my medical decision-making was reviewed with the Resident Physician. I agree with the documented findings, disposition and treatment plan as described except to the extent set forth below. Due to insurance purposes and logistics, not able to DC until Friday
--- NOTE | 2018-11-13 15:20 | Physician Discharge Referral ---
ExtendedCare Referral Info Transfer To: [facility] Provider in Charge after Transfer: PCP Institutional Level of Care: Skilled - Diagnosis (1) CHF exacerbation Priority: Primary Status: Acute (2) Left lower lobe pneumonia Priority: Secondary Status: Acute (3) Afib Priority: Secondary Status: Chronic (4) CKD (chronic kidney disease) stage 3, GFR 30-59 ml/min Priority: Secondary Status: Chronic (5) Hypertension Priority: Secondary Status: Chronic (6) Dementia Priority: Secondary Status: Chronic (7) GERD (gastroesophageal reflux disease) Priority: Secondary Status: Chronic (8) UTI (urinary tract infection) Priority: Secondary Status: Resolved - Transfer Medications Prescriptions: Levofloxacin [Levaquin] 750 mg PO DAILY 6 Days #6 tablet Home Medications: Calcitriol [Rocaltrol] 0.25 mcg PO DAILY 05/28/16 [History] Omeprazole 40 mg PO DAILY 06/12/16 [History] Furosemide [Lasix] 40 mg PO DAILY 04/24/17 [History] Allopurinol [Zyloprim 100 MG] 100 mg PO DAILY 11/12/18 [History] Cholecalciferol (Vitamin D3) [Vitamin D3] 50,000 unit PO WE 11/12/18 [History] Ipratropium/Albuterol Sulfate [Iprat-Albut 0.5-3(2.5) mg/3 ml] 3 ml IH Q6H PRN 11/12/18 [History] LORazepam [Ativan] 0.5 mg PO HS PRN 11/12/18 [History] Metoprolol Tartrate [Lopressor] 50 mg PO BID 11/12/18 [History] Nystatin POWDER [Nystop] 1 appl TP AD 11/12/18 [History] PARoxetine HCl [Paroxetine HCl] 30 mg PO DAILY 11/12/18 [History] Quetiapine Fumarate [Seroquel] 25 mg PO DAILY 11/12/18 [History] Warfarin Sodium 3 mg PO DAILY 11/12/18 [History] Levofloxacin [Levaquin] 750 mg PO DAILY 6 Days #6 tablet 11/13/18 [Rx] Paroxetine [Paxil] 30 mg PO DAILY tablet 11/13/18 [Rx] Allergies/Adverse Reactions: Allergy/AdvReac Type Severity Reaction Status Date / Time digoxin AdvReac Nausea Verified 11/12/18 02:06 doxycycline AdvReac Confusion Verified 06/12/16 21:33 - Respiratory Orders Smoking Cessation: Smoking cessation has been advised. For more information, call the [place] Tobacco Quit Line at 3-338-XDYS-NOW. - Advance Directives Code Status: DNR-Comfort Care CERTIFICATION: I certify that the transfer of the above named patient to an Extended Care Facility is necessary for the continuing treatment of the diagnosis listed. The above information is true and accurate reflection of patient's current condition. Confidential - Redisclosure prohibited without a patient's written consent.
--- NOTE | 2018-11-13 16:01 | Internal Med Progress Note ---
<Elizabeth Meyer - Last Filed: 11/13/18 15:53> Hospitalist Progress Note - Encounter Date of Encounter: 11/13/18 Time of Encounter: 08:15 - Subjective Interval History: Gen: Vitals noted. No acute distress. Appears comfortable. Eyes: anicteric sclerae, moist conjunctivae Cardiac: RRR, no murmur, +S1/S2. No JVD noted. Pulmonary: CTA bilaterally, no wheezes, rales or rhonchi, equal chest expansion Abdomen: soft, nontender, no guarding. No masses or hepatosplenomegaly MSK: ROM intact, no joint swelling noted Extremities: +1 pitting edema bilateral lower extremities, nontender calf Neuro: moves all extremities, no focal deficits. - Exam Vitals: Temp Pulse Resp BP Pulse Ox 98.8 F 83 16 96/61 96 11/13/18 11:03 11/13/18 11:03 11/13/18 11:06 11/13/18 11:03 11/13/18 11:06 Exam: SEE above - Assessment and Plan (1) CHF exacerbation Current Visit: Yes Status: Acute Assessment and Plan: Presented with shortness of breath likely secondary to stopped Lasix at the outside facility. Her echo was repeated upon admission and EF 60% unchanged from 04/24/17. Lasix was restarted and having good output. -Continue 40 mg Lasix by mouth -Continue intake and output monitoring -BMP in the morning (2) Left lower lobe pneumonia Current Visit: Yes Status: Acute Assessment and Plan: Had a chest x-ray [place] emergency department prior to transfer here and showed left lower lobe pneumonia. At admission and today she has equal breath sounds at all lung lobes but does appear to have congestion. Respiratory panel was negative Was started on vancomycin was discontinued as her MRSA swab was negative -Continue Levaquin for 7 day therapy for pneumonia -Continue to monitor vitals (3) Afib Current Visit: Yes Status: Chronic Assessment and Plan: Patient has a history of atrial fibrillation Home medications metoprolol and warfarin to be continued Pharmacy to dose warfarin (4) CKD (chronic kidney disease) stage 3, GFR 30-59 ml/min Current Visit: Yes Status: Chronic Assessment and Plan: History of CT stage 3 Creatinine on admission was 1.3 to her baseline is 1.62 to 2.00 This morning her creatinine is 1.61 which is close to her baseline She is having good urine output Continue to renally dose medications (5) Hypertension Current Visit: No Status: Chronic Assessment and Plan: History of hypertension, continue home metoprolol (6) Dementia Current Visit: No Status: Chronic Assessment and Plan: Patient has a history of dementia Per the patient's daughter, she appears at baseline avoid benzodiazepines for agitation Continue home medications Seroquel for agitation (7) GERD (gastroesophageal reflux disease) Current Visit: No Status: Chronic Assessment and Plan: Continue home omeprazole (8) UTI (urinary tract infection) Current Visit: Yes Status: Resolved Assessment and Plan: History of UTI was treated outpatient with Zosyn and ertapenem. Since admission Zosyn was stopped and she was started on meropenem Completed antibiotic regimen for 14 day therapy for UTI DVT Prophylaxis: On warfarin - Time Spent with Patient Total time spent is greater than 50% in coordination of care (as documented) at patient's floor/unit and/or counseling patient: Internal Medicine: Result - Labs CBC & Chem 7: 11/13/18 11:41 11/13/18 12:30 Labs: Short CBC 11/13/18 11/13/18 Range/Units 03:40 11:41 WBC 8.8 (4.3-11.1) K/mcL Hgb 9.4 L 10.6 L (11.5-15.4) g/dL Hct 29.3 L 33.3 L (35.3-44.9) % Plt Count 181 (140-400) K/mcL Neutrophils # 6.9 (1.6-8.9) K/mcL BMP 11/13/18 12:30 Sodium 140 Potassium 4.3 Chloride 103 Carbon Dioxide 32 H BUN 36 H Creatinine 1.61 H Glucose 89 Calcium 9.1 - ABG Interpretation ABG results: PT/INR, D-dimer PT 28.5 Seconds (9.4-12.1) H 11/13/18 03:40 Consult Discharge Plan - Plan Referrals: NONE,PCP [Primary Care Provider] - Prescriptions: Levofloxacin [Levaquin] 750 mg PO DAILY 6 Days #6 tablet <Preston Vaughan - Last Filed: 11/13/18 18:26> Hospitalist Progress Note - Encounter Date of Encounter: 11/13/18 - Exam Vitals: Temp Pulse Resp BP Pulse Ox 98.6 F 91 18 121/58 92 11/13/18 16:18 11/13/18 16:18 11/13/18 16:55 11/13/18 16:18 11/13/18 16:55 - Assessment and Plan (1) Afib Current Visit: Yes Status: Chronic (2) CKD (chronic kidney disease) stage 3, GFR 30-59 ml/min Current Visit: Yes Status: Chronic (3) Hypertension Current Visit: No Status: Chronic (4) Dementia Current Visit: No Status: Chronic (5) GERD (gastroesophageal reflux disease) Current Visit: No Status: Chronic (6) CHF exacerbation Current Visit: Yes Status: Acute (7) Left lower lobe pneumonia Current Visit: Yes Status: Acute (8) UTI (urinary tract infection) Current Visit: Yes Status: Resolved - Time Spent with Patient Total time spent is greater than 50% in coordination of care (as documented) at patient's floor/unit and/or counseling patient: Internal Medicine: Result - Labs CBC & Chem 7: 11/13/18 11:41 11/13/18 12:30 Labs: Short CBC 11/13/18 11/13/18 Range/Units 03:40 11:41 WBC 8.8 (4.3-11.1) K/mcL Hgb 9.4 L 10.6 L (11.5-15.4) g/dL Hct 29.3 L 33.3 L (35.3-44.9) % Plt Count 181 (140-400) K/mcL Neutrophils # 6.9 (1.6-8.9) K/mcL BMP 11/13/18 12:30 Sodium 140 Potassium 4.3 Chloride 103 Carbon Dioxide 32 H BUN 36 H Creatinine 1.61 H Glucose 89 Calcium 9.1 - ABG Interpretation ABG results: PT/INR, D-dimer PT 28.5 Seconds (9.4-12.1) H 11/13/18 03:40 - Attending Attestation I examined this patient and my medical decision-making was reviewed with the Resident Physician. I agree with the documented findings, disposition and treatment plan as described except to the extent set forth below. <Elizabeth Meyer - Last Filed: 11/13/18 15:53> (1) CHF exacerbation Qualifiers: Heart failure type: diastolic Qualified Code(s): I50.33 - Acute on chronic diastolic (congestive) heart failure (2) Left lower lobe pneumonia Qualifiers: Pneumonia type: due to unspecified organism Qualified Code(s): J18.1 - Lobar pneumonia, unspecified organism (3) Afib Qualifiers: Atrial fibrillation type: chronic Qualified Code(s): I48.2 - Chronic atrial fibrillation (5) Hypertension Qualifiers: Hypertension type: essential hypertension Qualified Code(s): I10 - Essential (primary) hypertension (6) Dementia Qualifiers: Dementia type: Alzheimer's disease Alzheimer's disease onset: unspecified onset Dementia behavioral disturbance: without behavioral disturbance Quali fied Code(s): G30.9 - Alzheimer's disease, unspecified; F02.80 - Dementia in other diseases classified elsewhere without behavioral disturbance (7) GERD (gastroesophageal reflux disease) Qualifiers: Esophagitis presence: esophagitis presence not specified Qualified Code(s): K21.9 - Gastro-esophageal reflux disease without esophagitis (8) UTI (urinary tract infection) Qualifiers: Urinary tract infection type: site unspecified Hematuria presence: without hematuria Qualified Code(s): N39.0 - Urinary tract infection, site not specified <Preston Vaughan - Last Filed: 11/13/18 18:26> (1) Afib Qualifiers: Atrial fibrillation type: chronic Qualified Code(s): I48.2 - Chronic atrial fibrillation (3) Hypertension Qualifiers: Hypertension type: essential hypertension Qualified Code(s): I10 - Essential (primary) hypertension (4) Dementia Qualifiers: Dementia type: Alzheimer's disease Alzheimer's disease onset: unspecified onset Dementia behavioral disturbance: without behavioral disturbance Qualified Code(s): G30.9 - Alzheimer's disease, unspecified; F02.80 - Dementia in other diseases classified elsewhere without behavioral disturbance (5) GERD (gastroesophageal reflux disease) Qualifiers: Esophagitis presence: esophagitis presence not specified Qualified Code(s): K21.9 - Gastro-esophageal reflux disease without esophagitis (6) CHF exacerbation Qualifiers: Heart failure type: diastolic Qualified Code(s): I50.33 - Acute on chronic diastolic (congestive) heart failure (7) Left lower lobe pneumonia Qualifiers: Pneumonia type: due to unspecified organism Qualified Code(s): J18.1 - Lobar pneumonia, unspecified organism (8) UTI (urinary tract infection) Qualifiers: Urinary tract infection type: site unspecified Hematuria presence: without hematuria Qualified Code(s): N39.0 - Urinary tract infection, site not specified
[2018-11-13] MEDS ORDERED: *HR* Warfarin 3 MG TABLET PO ONE (18:00)
[2018-11-14] MEDS: Ipratropium/Albuterol Neb 3 ML IH SCH ×4 (04:07→22:08)
[2018-11-14 06:35] LABS: Basophils % 0.1 %; Eosinophils # 0.1 K/mcL (0.0-0.6); Eosinophils % 1.5 %; Hematocrit 27.7 % (35.3-44.9); Immature Granulocytes % 1.1 % (0-4); Lymphocytes % 11.2 %; Mean Corpuscular HGB Conc 32.1 g/dL (31.6-35.5); Mean Corpuscular Hemoglobin 28.8 pg (28.0-33.3); Mean Corpuscular Volume 89.6 fL (83.0-100.0); Mean Platelet Volume 9.9 fL (9.4-12.4); Monocytes # 0.7 K/mcL (0.0-1.3); Monocytes % 7.8 %; Neutrophils # 6.9 K/mcL (1.6-8.9); Platelet Count 147 K/mcL (140-400); Red Blood Count 3.09 M/mcL (3.82-4.97); Red Cell Distribution Width 16.7 % (11.5-14.5); Segmented Neutrophils % 78.3 %
[2018-11-14 06:37] LABS: Hemoglobin 8.9 g/dL (11.5-15.4)
[2018-11-14 06:42] LABS: Prothrombin Time 22.9 Seconds (9.4-12.1)
[2018-11-14 06:55] LABS: Calcium 8.8 mg/dL (8.6-10.3); Potassium 4.1 mEq/L (3.5-5.1)
--- NOTE | 2018-11-14 07:52 | Internal Med Progress Note ---
Hospitalist Progress Note - Encounter Date of Encounter: 11/14/18 Time of Encounter: 07:49 - Subjective Interval History: She is resting in bed comfortably, remains aphasic for the most part, and cooperative, went away, minimally restless. It appears she has had an uneventful evening. Diuresis continues. Due to social constraints, and insurance, we will be able to discharge in 2 days from now. - Exam Vitals: Temp Pulse Resp BP Pulse Ox 98.2 F 98 14 104/65 99 11/14/18 06:38 11/14/18 06:38 11/14/18 06:38 11/14/18 06:38 11/14/18 06:38 Exam: Cardiovascular: S1 and S2, irregular, somewhat distant, no murmur. No JVD Pulmonary: Lungs fairly clear, no tachypnea. GI: Abdomen is soft, active bowel sounds, nontender, no organomegaly. Lower extremities: Minimal edema, some ecchymosis. There are warm, - Assessment and Plan (1) CHF exacerbation Current Visit: Yes Status: Acute Assessment and Plan: She continues to improve, she is in no distress whatsoever, at least 1800 mL of urine output yesterday. We should be able to back off some medication soon, I will pull her [place] today, DC telemetry. This appears to be acute diastolic in character. (2) Left lower lobe pneumonia Current Visit: Yes Status: Acute Assessment and Plan: This seems to be responding to treatment. No change currently. Day 3 of Levaquin. (3) Afib Current Visit: Yes Status: Chronic (4) CKD (chronic kidney disease) stage 3, GFR 30-59 ml/min Current Visit: Yes Status: Chronic Assessment and Plan: Noted slight bump in her creatinine, not unexpected given diuresis, will recheck tomorrow. (5) Hypertension Current Visit: No Status: Chronic (6) Dementia Current Visit: No Status: Chronic - Time Spent with Patient Total time spent is greater than 50% in coordination of care (as documented) at patient's floor/unit and/or counseling patient: Internal Medicine: Result - Labs CBC & Chem 7: 11/14/18 06:20 11/14/18 06:20 Labs: Short CBC 11/13/18 11/14/18 Range/Units 11:41 06:20 WBC 8.8 (4.3-11.1) K/mcL Hgb 10.6 L 8.9 L D (11.5-15.4) g/dL Hct 33.3 L 27.7 L (35.3-44.9) % Plt Count 147 (140-400) K/mcL Neutrophils # 6.9 (1.6-8.9) K/mcL BMP 11/13/18 11/14/18 12:30 06:20 Sodium 140 140 Potassium 4.3 4.1 Chloride 103 103 Carbon Dioxide 32 H 30 H BUN 36 H 36 H Creatinine 1.61 H 1.75 H Glucose 89 89 Calcium 9.1 8.8 - ABG Interpretation ABG results: PT/INR, D-dimer PT 22.9 Seconds (9.4-12.1) H 11/14/18 06:20 Consult Discharge Plan - Plan Referrals: NONE,PCP [Primary Care Provider] - Prescriptions: Levofloxacin [Levaquin] 750 mg PO DAILY 6 Days #6 tablet (1) CHF exacerbation Qualifiers: Heart failure type: diastolic Qualified Code(s): I50.33 - Acute on chronic diastolic (congestive) heart failure (2) Left lower lobe pneumonia Qualifiers: Pneumonia type: due to unspecified organism Qualified Code(s): J18.1 - Lobar pneumonia, unspecified organism (3) Afib Qualifiers: Atrial fibrillation type: chronic Qualified Code(s): I48.2 - Chronic atrial fibrillation (5) Hypertension Qualifiers: Hypertension type: essential hypertension Qualified Code(s): I10 - Essential (primary) hypertension (6) Dementia Qualifiers: Dementia type: Alzheimer's disease Alzheimer's disease onset: unspecified onset Dementia behavioral disturbance: without behavioral disturbance Qualified Code(s): G30.9 - Alzheimer's disease, unspecified; F02.80 - Dementia in other diseases classified elsewhere without behavioral disturbance
[2018-11-14] MEDS: Furosemide 40 MG TABLET PO SCH (08:40)
[2018-11-14] MEDS ORDERED: levoFLOXacin 750 MG TABLET PO SCH (15:00)
[2018-11-14] MEDS ORDERED: *HR* Warfarin 5 MG TABLET PO ONE (18:00)
[2018-11-15] MEDS: Ipratropium/Albuterol Neb 3 ML IH SCH ×4 (04:09→22:22)
[2018-11-15 07:28] LABS: Prothrombin Time 22.8 Seconds (9.4-12.1)
[2018-11-15 07:39] LABS: BUN/Creatinine Ratio 20 (6-26); Blood Urea Nitrogen 36 mg/dL (8-23); eGFR For Non-African Americans 27 (> 60)
[2018-11-15] MEDS: Furosemide 40 MG TABLET PO SCH (08:07)
--- NOTE | 2018-11-15 09:06 | Internal Med Progress Note ---
Date of Encounter: 11/15/18 Time of Encounter: 09:04 - Assessment and plan (1) CHF exacerbation Current Visit: Yes Status: Resolved Assessment and plan: I believe the volume overload the most part has resolved itself. 1200 mL urine output, renal function stable. Qualifiers: Heart failure type: diastolic Qualified Code(s): I50.33 - Acute on chronic diastolic (congestive) heart failure (2) Left lower lobe pneumonia Current Visit: Yes Status: Acute Assessment and plan: Stable to resolving. She will need to go home on 3 additional days of antibiotic Qualifiers: Pneumonia type: due to unspecified organism Qualified Code(s): J18.1 - Lobar pneumonia, unspecified organism (3) Afib Current Visit: Yes Status: Chronic Qualifiers: Atrial fibrillation type: chronic Qualified Code(s): I48.2 - Chronic atrial fibrillation (4) CKD (chronic kidney disease) stage 3, GFR 30-59 ml/min Current Visit: Yes Status: Chronic (5) Hypertension Current Visit: No Status: Chronic Qualifiers: Hypertension type: essential hypertension Qualified Code(s): I10 - Essential (primary) hypertension (6) Dementia Current Visit: No Status: Chronic Assessment and plan: This is fairly advanced, unfortunately her prognosis is poor. Qualifiers: Dementia type: Alzheimer's disease Alzheimer's disease onset: unspecified onset Dementia behavioral disturbance: without behavioral disturbance Qualified Code(s): G30.9 - Alzheimer's disease, unspecified; F02.80 - Dementia in other diseases classified elsewhere without behavioral disturbance - Subjective Interval history: Daughter our hope is for discharge tomorrow once at the bedside, she is actively eating breakfast, remains still somewhat confused. He is somewhat cooperative. I do not appreciate any changes from yesterday. We will plan for discharge tomorrow as soon as [facility] bed [facility] available. - Constitutional Vitals: Temp Pulse Resp BP Pulse Ox 97.8 F 102 20 106/67 92 11/15/18 07:21 11/15/18 07:21 11/15/18 07:21 11/15/18 07:21 11/15/18 07:21 General appearance: Present: A&O X 0, pleasant, no acute distress - Neck Neck exam general surgery: Present: supple, trachea midline. Absent: tenderness - Respiratory Respiratory exam: Present: CTAB Additional comments: There are some central rhonchus-type changes, these are really not new. Her bases are for the most part clear, effort is poor, no tachypnea. - Cardiovascular Cardiovascular exam: Present: irregular rhythm, +S1, +S2. Absent: JVD - GI/Abdominal GI/Abdominal exam: Present: normal bowel sounds, soft, no peritoneal signs. Absent: tenderness - Extremities Exam Extremities exam: Present: warm. Absent: pedal edema Internal Medicine: Result - Labs CBC & Chem 7: 11/14/18 06:20 11/15/18 07:10 Labs: BMP 11/15/18 07:10 BUN 36 H Creatinine 1.79 H - ABG Interpretation ABG results: PT/INR, D-dimer PT 22.8 Seconds (9.4-12.1) H 11/15/18 07:10 Consult Discharge Plan - Plan Referrals: NONE,PCP [Primary Care Provider] - Prescriptions: Levofloxacin [Levaquin] 750 mg PO DAILY 6 Days #6 tablet
[2018-11-15 13:46] LABS: Basophils % 0.1 %; Eosinophils # 0.1 K/mcL (0.0-0.6); Eosinophils % 0.7 %; Hematocrit 29.6 % (35.3-44.9); Hemoglobin 9.5 g/dL (11.5-15.4); Immature Granulocytes % 0.7 % (0-4); Lymphocytes # 0.8 K/mcL (0.6-4.6); Lymphocytes % 7.9 %; Mean Corpuscular HGB Conc 32.1 g/dL (31.6-35.5); Mean Corpuscular Hemoglobin 29.3 pg (28.0-33.3); Mean Corpuscular Volume 91.4 fL (83.0-100.0); Mean Platelet Volume 10.5 fL (9.4-12.4); Monocytes # 0.7 K/mcL (0.0-1.3); Monocytes % 6.9 %; Neutrophils # 8.5 K/mcL (1.6-8.9); Platelet Count 154 K/mcL (140-400); Red Blood Count 3.24 M/mcL (3.82-4.97); Red Cell Distribution Width 16.7 % (11.5-14.5); Segmented Neutrophils % 83.7 %
[2018-11-15 14:00] LABS: Calcium 8.9 mg/dL (8.6-10.3); Magnesium 1.9 mg/dL (1.6-2.6)
--- NOTE | 2018-11-15 14:58 | Event Note ---
Date of Encounter: 11/15/18 Time of Encounter: 14:56 Received a note from the Nurse about some "jerking movements", as well as low grade temp. of 99.0. I did witness these and talked with the family. I suspect she maybe having side effects sec. to Levaquin which I have stopped. Her Lungs are clear, abd. is benign. Nothing focal on her neurologic exam. I have held the Diuretic as her Creat. creaped up some. CBC is actually improved.
[2018-11-15] MEDS ORDERED: *HR* Warfarin 3 MG TABLET PO ONE (18:00)
[2018-11-15] MEDS ORDERED: Acetaminophen 325 MG TABLET PO PRN (22:43)
[2018-11-16 02:27] LABS: INR 1.9; Prothrombin Time 21.8 Seconds (9.4-12.1)
[2018-11-16] MEDS: Ipratropium/Albuterol Neb 3 ML IH SCH ×3 (04:07→16:09)
[2018-11-16 16:04] VITALS: BP 91/61
--- NOTE | 2018-11-16 16:04 | Discharge Summary ---
<Elizabeth Meyer - Last Filed: 11/16/18 16:01> - NOTES TO OUTPATIENT PROVIDER Notes to Outpatient Provider: Ms. Mayorga was presented to the ED due to shortness of breath and recent surgery to 40 pound weight gain. Per family she was not receiving her Lasix outpatient which likely caused her lower extremity edema and we can as well as shortness of breath. She had an echo during this admission and showed preserved EF of 60%. Her Lasix has been restarted and 40 mg by mouth should be continued. Additionally her UTI regimen has been completed and antibiotics for that has been stopped. Orders not resulted at time of discharge: Pending orders 11/15/18 13:29 Culture,Blood [BC] Stat 11/15/18 14:00 Culture,Urine [RM] Stat 11/17/18 04:00 INR/PT [Prothrombin Time INR] [COAG] AM 0400 11/18/18 04:00 INR/PT [Prothrombin Time INR] [COAG] AM 0400 11/19/18 04:00 INR/PT [Prothrombin Time INR] [COAG] AM 0400 11/20/18 04:00 INR/PT [Prothrombin Time INR] [COAG] AM 0400 Date of Encounter: 11/16/18 Time of Encounter: 09:00 - Discharge Diagnosis (1) CHF exacerbation Priority: Primary Status: Resolved Qualifiers: Heart failure type: diastolic Qualified Code(s): I50.33 - Acute on chronic diastolic (congestive) heart failure (2) Afib Priority: Secondary Status: Chronic Qualifiers: Atrial fibrillation type: chronic Qualified Code(s): I48.2 - Chronic atrial fibrillation (3) CKD (chronic kidney disease) stage 3, GFR 30-59 ml/min Priority: Secondary Status: Chronic (4) Hypertension Priority: Secondary Status: Chronic Qualifiers: Hypertension type: essential hypertension Qualified Code(s): I10 - Essential (primary) hypertension (5) Dementia Priority: Secondary Status: Chronic Qualifiers: Dementia type: Alzheimer's disease Alzheimer's disease onset: unspecified onset Dementia behavioral disturbance: without behavioral disturbance Qualified Code(s): G30.9 - Alzheimer's disease, unspecified; F02.80 - Dementia in other diseases classified elsewhere without behavioral disturbance (6) Left lower lobe pneumonia Priority: Secondary Status: Acute Qualifiers: Pneumonia type: due to unspecified organism Qualified Code(s): J18.1 - Lobar pneumonia, unspecified organism Hospital course: Ms. Restrepo is a 83 year old female who was presented from [facility] with complaint of shortness of breath. Per family she had recently gained 30-40 pounds as she was not getting car home Lasix. She had recently been admitted to [facility] for bronchitis and pneumonia and was found to have urine positive for ESBL which was sensitive to ertapenem or Zosyn. At presentation she was noted to be on both of those antibiotics. Which was discontinued. She received 2 days of meropenem completes her 14 day regimen for UTI. During her admission here she had a MRSA swab which was negative, she also had a respiratory infectious panel collected which was also negative for any viral causes. She has completed her antibiotic regimen. She should also continue 40 mg oral Lasix daily. Discharge discussed with: patient - Time Spent with Patient Total time spent providing and/or coordinating discharge services: - Discharge Medications Prescriptions: New RX: Paroxetine [Paxil] 30 mg PO DAILY tablet Continue RX: Furosemide [Lasix] 40 mg PO DAILY RX: Cholecalciferol (Vitamin D3) [Vitamin D3] 50,000 unit PO WE RX: Quetiapine Fumarate [Seroquel] 25 mg PO DAILY RX: PARoxetine HCl [Paroxetine HCl] 30 mg PO DAILY RX: Nystatin POWDER [Nystop] 1 appl TP AD RX: Metoprolol Tartrate [Lopressor] 50 mg PO BID RX: Ipratropium/Albuterol Sulfate [Iprat-Albut 0.5-3(2.5) mg/3 ml] 3 ml IH Q6H PRN PRN Reason: PNEUMONIA RX: Warfarin Sodium 3 mg PO DAILY RX: Allopurinol [Zyloprim 100 MG] 100 mg PO DAILY RX: Calcitriol [Rocaltrol] 0.25 mcg PO DAILY RX: Omeprazole 40 mg PO DAILY Discontinued RX: predniSONE [PredniSONE] 10 mg PO BID RX: LORazepam [Ativan] 0.5 mg PO HS PRN PRN Reason: Anxiety Ertapenem Sodium [Invanz] 1 gm IJ DAILY [id number]-Rnjzftye,Iso [Zosyn 2.25 gm/50 ml Galaxy Bag] 2.25 gm IV QID Home Medications: RX: Calcitriol [Rocaltrol] 0.25 mcg PO DAILY 05/28/16 [History] RX: Omeprazole 40 mg PO DAILY 06/12/16 [History] RX: Furosemide [Lasix] 40 mg PO DAILY 04/24/17 [History] RX: Allopurinol [Zyloprim 100 MG] 100 mg PO DAILY 11/12/18 [History] RX: Cholecalciferol (Vitamin D3) [Vitamin D3] 50,000 unit PO WE 11/12/18 [History] RX: Ipratropium/Albuterol Sulfate [Iprat-Albut 0.5-3(2.5) mg/3 ml] 3 ml IH Q6H PRN 11/12/18 [History] RX: Metoprolol Tartrate [Lopressor] 50 mg PO BID 11/12/18 [History] RX: Nystatin POWDER [Nystop] 1 appl TP AD 11/12/18 [History] RX: PARoxetine HCl [Paroxetine HCl] 30 mg PO DAILY 11/12/18 [History] RX: Quetiapine Fumarate [Seroquel] 25 mg PO DAILY 11/12/18 [History] RX: Warfarin Sodium 3 mg PO DAILY 11/12/18 [History] RX: Paroxetine [Paxil] 30 mg PO DAILY tablet 11/13/18 [Rx] Allergies/Adverse Reactions: Allergy/AdvReac Type Severity Reaction Status Date / Time digoxin AdvReac Nausea Verified 11/12/18 02:06 doxycycline AdvReac Confusion Verified 06/12/16 21:33 Date of admission: 11/12/18 01:11 Primary care physician: PCP NONE Consults: 11/12/18 04:52 Consult to Occupational Therapy [CONS] Routine Comment: Evaluate, develop and implement POC Reason for Consult: Generalized weakness Does patient have active BEDREST order?: No Is patient medically & hemodynamically stable?: Yes Patient assessed for mobility or mobilized this visit?: No Consult to Physical Therapy [CONS] Routine Comment: Evaluate, develop and implement POC Reason for Consult: generalized weakness Does patient have active BEDREST order?: No Is patient medically & hemodynamically stable?: Yes Patient assessed for mobility or mobilized this visit?: No 11/12/18 05:05 Consult to PICC team [Consult to Invasive Line Access Team] [CONS] Routine Reason for Consult: Incompatible midline Line Type: Midline Call Completed: No 11/12/18 08:21 Consult to Nurse Navigator [CONS] Routine Comment: CHF, PNEUMONIA Consult to Marketing Services Coordinator [CONS] Routine Reason for SW Consult: PATIENT FROM [facility]. WILL NEED A NEW AUTH TO RETURN Discharging clinician: Elizabeth Meyer Anticipated date of discharge: 11/16/18 - Constitutional Vitals: Temp Pulse Resp BP Pulse Ox 97.9 F 85 18 98/64 93 11/16/18 10:46 11/16/18 10:46 11/16/18 10:46 11/16/18 10:46 11/16/18 10:46 General appearance: Present: A&O X 0, pleasant, no acute distress Exam: see above - Head Head exam: Present: atraumatic, normocephalic - Eye Eye exam: Present: EOMI, normal appearance - ENT ENT exam: Present: mucous membranes moist, normal exam - Respiratory Respiratory exam: Present: CTAB. Absent: rhonchi, stridor, wheezes - Cardiovascular Cardiovascular exam: Present: RRR, +S1, +S2 - GI/Abdominal GI/Abdominal exam: Present: normal bowel sounds, soft. Absent: firm, guarding, rebound, rigid - Extremities Exam Extremities exam: Present: full ROM, warm. Absent: pedal edema, tenderness - Psychiatric Psychiatric exam: Present: normal affect, normal mood - Skin Skin exam: Present: dry. Absent: intact, rash - Patient Status Disposition: Transfer SNF Condition: Fair Overall status at discharge: patient is progressing back to baseline - Discharge Instructions Follow Up With: Kemi Reina [Advanced Practice Nurse] - - Diet and Activity Activity: as per physical therapy Diet: low salt diet <Preston Vaughan - Last Filed: 11/16/18 19:06> Orders not resulted at time of discharge: Pending orders 11/15/18 13:29 Culture,Blood [BC] Stat 11/15/18 14:00 Culture,Urine [RM] Stat 11/17/18 04:00 INR/PT [Prothrombin Time INR] [COAG] AM 0400 11/18/18 04:00 INR/PT [Prothrombin Time INR] [COAG] AM 04011/19/18 04:00 INR/PT [Prothrombin Time INR] [COAG] AM 04011/20/18 04:00 INR/PT [Prothrombin Time INR] [COAG] AM 0400 Date of Encounter: 11/16/18 - Discharge Diagnosis (1) Afib Status: Chronic Qualifiers: Atrial fibrillation type: chronic Qualified Code(s): I48.2 - Chronic atrial fibrillation (2) CKD (chronic kidney disease) stage 3, GFR 30-59 ml/min Status: Chronic (3) Hypertension Status: Chronic Qualifiers: Hypertension type: essential hypertension Qualified Code(s): I10 - Essential (primary) hypertension (4) Dementia Status: Chronic Qualifiers: Dementia type: Alzheimer's disease Alzheimer's disease onset: unspecified onset Dementia behavioral disturbance: without behavioral disturbance Qualified Code(s): G30.9 - Alzheimer's disease, unspecified; F02.80 - Dementia in other diseases classified elsewhere without behavioral disturbance (5) CHF exacerbation Status: Resolved Qualifiers: Heart failure type: diastolic Qualified Code(s): I50.33 - Acute on chronic diastolic (congestive) heart failure (6) Left lower lobe pneumonia Status: Acute Qualifiers: Pneumonia type: due to unspecified organism Qualified Code(s): J18.1 - Lobar pneumonia, unspecified organism Hospital course: Ms. Restrepo is a 83 year old female - Time Spent with Patient Total time spent providing and/or coordinating discharge services: Date of admission: 11/12/18 01:11 Primary care physician: PCP NONE Consults: 11/12/18 04:52 Consult to Occupational Therapy [CONS] Routine Comment: Evaluate, develop and implement POC Reason for Consult: Generalized weakness Does patient have active BEDREST order?: No Is patient medically & hemodynamically stable?: Yes Patient assessed for mobility or mobilized this visit?: No Consult to Physical Therapy [CONS] Routine Comment: Evaluate, develop and implement POC Reason for Consult: generalized weakness Does patient have active BEDREST order?: No Is patient medically & hemodynamically stable?: Yes Patient assessed for mobility or mobilized this visit?: No 11/12/18 05:05 Consult to PICC team [Consult to Invasive Line Access Team] [CONS] Routine Reason for Consult: Incompatible midline Line Type: Midline Call Completed: No 11/12/18 08:21 Consult to Nurse Navigator [CONS] Routine Comment: CHF, PNEUMONIA Consult to Marketing Services Coordinator [CONS] Routine Reason for SW Consult: PATIENT FROM [facility]. WILL NEED A NEW AUTH TO RETURN - Constitutional Vitals: Temp Pulse Resp BP Pulse Ox 98.4 F 89 18 91/61 93 11/16/18 16:03 11/16/18 16:03 11/16/18 16:11 11/16/18 16:03 11/16/18 16:11 - Attending Attestation I examined this patient and my medical decision-making was reviewed with the Resident Physician. I agree with the documented findings, disposition and treatment plan as described except to the extent set forth below. Greater than 30 min. DC given note, visit with family and documents required. Addendum entered and electronically signed by Elizabeth Meyer 11/16/18 17:06: Stopped home Ativan
--- NOTE | 2018-11-16 16:09 | Physician Discharge Referral ---
<Elizabeth Meyer - Last Filed: 11/16/18 16:08> ExtendedCare Referral Info Transfer To: ECF Provider in Charge after Transfer: PCP Institutional Level of Care: Skilled - Diagnosis (1) CHF exacerbation Priority: Primary Status: Resolved (2) Afib Priority: Secondary Status: Chronic (3) CKD (chronic kidney disease) stage 3, GFR 30-59 ml/min Priority: Secondary Status: Chronic (4) Hypertension Priority: Secondary Status: Chronic (5) Dementia Priority: Secondary Status: Chronic (6) Left lower lobe pneumonia Priority: Secondary Status: Acute - Transfer Medications Home Medications: RX: Calcitriol [Rocaltrol] 0.25 mcg PO DAILY 05/28/16 [History] RX: Omeprazole 40 mg PO DAILY 06/12/16 [History] RX: Furosemide [Lasix] 40 mg PO DAILY 04/24/17 [History] RX: Allopurinol [Zyloprim 100 MG] 100 mg PO DAILY 11/12/18 [History] RX: Cholecalciferol (Vitamin D3) [Vitamin D3] 50,000 unit PO WE 11/12/18 [History] RX: Ipratropium/Albuterol Sulfate [Iprat-Albut 0.5-3(2.5) mg/3 ml] 3 ml IH Q6H PRN 11/12/18 [History] RX: Metoprolol Tartrate [Lopressor] 50 mg PO BID 11/12/18 [History] RX: Nystatin POWDER [Nystop] 1 appl TP AD 11/12/18 [History] RX: PARoxetine HCl [Paroxetine HCl] 30 mg PO DAILY 11/12/18 [History] RX: Quetiapine Fumarate [Seroquel] 25 mg PO DAILY 11/12/18 [History] RX: Warfarin Sodium 3 mg PO DAILY 11/12/18 [History] RX: Paroxetine [Paxil] 30 mg PO DAILY tablet 11/13/18 [Rx] Allergies/Adverse Reactions: Allergy/AdvReac Type Severity Reaction Status Date / Time digoxin AdvReac Nausea Verified 11/12/18 02:06 doxycycline AdvReac Confusion Verified 06/12/16 21:33 - Respiratory Orders Smoking Cessation: Smoking cessation has been advised. For more information, call the [place] Tobacco Quit Line at 6-715-NQTA-NOW. - Advance Directives Code Status: DNR-Comfort Care - Diet Orders House Supplement per Dietary: Low sodium and fluid restriction diet of 1.5 liter CERTIFICATION: I certify that the transfer of the above named patient to an Extended Care Facility is necessary for the continuing treatment of the diagnosis listed. The above information is true and accurate reflection of patient's current condition. Confidential - Redisclosure prohibited without a patient's written consent. <Preston Vaughan - Last Filed: 11/16/18 19:08> - Diagnosis (1) Afib Status: Chronic (2) CKD (chronic kidney disease) stage 3, GFR 30-59 ml/min Status: Chronic (3) Hypertension Status: Chronic (4) Dementia Status: Chronic (5) CHF exacerbation Status: Resolved (6) Left lower lobe pneumonia Status: Acute - Respiratory Orders Smoking Cessation: Smoking cessation has been advised. For more information, call the [place] Tobacco Quit Line at 1-031-SXLW-NOW. CERTIFICATION: I certify that the transfer of the above named patient to an Extended Care Facility is necessary for the continuing treatment of the diagnosis listed. The above information is true and accurate reflection of patient's current condition. Confidential - Redisclosure prohibited without a patient's written consent. - Attending Attestation I examined this patient and my medical decision-making was reviewed with the Resident Physician. I agree with the documented findings, disposition and treatment plan as described except to the extent set forth below.
[2018-11-16] MEDS ORDERED: *HR* Warfarin 3 MG TABLET PO ONE (18:00)
== END 2018-11-16 19:45 ==
LOC: 3BNU
PROVIDERS: ADMIT Pediatrics; ATTEND Pediatrics